=== PATIENT | female | born 1950 | race African-American/Black ===

== ENCOUNTER 2023-06-05 22:16 | Observation (INO) | payer MEDICARE ==
[2023-06-06] MEDS ORDERED: Ondansetron ODT 4 MG TAB PO PRN (01:17)
[2023-06-06] MEDS ORDERED: Dextrose 5% in Water 1,000 ML IV PRN (01:17)
[2023-06-06] MEDS ORDERED: HumaLOG 300 UNITS/3 ML VIAL SC PRN ×2 (01:17)
[2023-06-06] MEDS ORDERED: Acetaminophen 325 MG TAB PO PRN (01:17)
[2023-06-06] MEDS ORDERED: Dextrose 50% Abboject 50 ML SYRINGE SLOW IVP PRN (01:17)
[2023-06-06] MEDS ORDERED: hydrALAZINE 20 MG/ML VIAL SLOW IVP PRN (01:17)
[2023-06-06] MEDS ORDERED: Glucagon 1 MG/ML KIT IM PRN (01:17)
[2023-06-06] MEDS ORDERED: Ondansetron PF 4 MG/2 ML Vial IVP PRN (01:17)
[2023-06-06] MEDS: HYDROcodone/Acetaminophen 5/325 mg Tablet PO PRN ×2 (02:46→10:40)
[2023-06-06] MEDS ORDERED: Ketorolac Tromethamine 30 MG/ML VIAL IVP SCH ×2 (04:00→18:15)
[2023-06-06] MEDS ORDERED: HYDROcodone/Acetaminophen 5/325 mg Tablet PO PRN (06:00)
[2023-06-06 06:31] LABS: #Eosinphils 0.2 thou/uL (0.0-0.7); #Monocytes 0.4 thou/uL (0.11-0.59); #Neutrophils 3.5 thou/uL (1.40-6.50); %Basophils 0.5 % (0.0-1.0); %Eosinophils 2.6 % (0.0-10.0); %Lymphocytes 28.1 % (21.0-51.0); %Neutrophils 61.6 % (42.0-75.0); Hematocrit 37.4 % (36.0-47.0); Hemoglobin 12.1 g/dL (12.0-16.0); Mean Corpuscular HGB CONC 32.4 g/dL (32.0-36.0); Mean Corpuscular Hemoglobin 29.8 pg (27.0-31.0); Mean Corpuscular Volume 92.1 fl (78.0-98.0); Mean Platelet Volume 10.3 fL (7.4-10.4); Platelet Count 334 10x3/uL (130-400); RBC Distribution Width 16.4 % (11.5-14.5); Red Blood Cell (RBC) Count 4.06 mill/uL (4.20-5.40); White Blood Cell (WBC) Count 5.7 10x3/uL (4.8-10.8)
[2023-06-06 06:41] LABS: Hemoglobin A1c 7.3 % (4.0-6.0)
[2023-06-06 06:58] LABS: Anion Gap 11 mmol/L (10-20); BUN (Urea Nitrogen) 16 mg/dL (9.8-20.1); Calc. Creatinine Clearance 0 mL/min (70-130); Carbon Dioxide 26 mmol/L (23-31); Cardiac Risk 3.2 (Less than 4.5); Chloride 105 mmol/L (98-107); Cholesterol 185 mg/dl (< 200 Desired); Estimated GFR 83; Glucose 112 mg/dL (83-110); HDL Cholesterol 58 mg/dL (>60 Neg Risk); LDL Cholesterol, Calculated 109 mg/dL; Potassium 3.4 mmol/L (3.5-5.1); Sodium 139 mmol/L (136-145); Triglycerides 90 mg/dL (Less than 150)
[2023-06-06] MEDS ORDERED: Morphine 2 MG/ML VIAL SLOW IVP SCH ×2 (07:00→16:00)
[2023-06-06] MEDS ORDERED: FLU VACC QS2023(65UP)/MF59C/PF 60 MCG/0.5 ML SYRINGE IM ONE (09:00)
[2023-06-06] MEDS: Aspirin 81 mg Enteric Coated Tablet PO SCH (09:17)
[2023-06-06] MEDS ORDERED: Morphine 2 MG/ML VIAL SLOW IVP PRN (18:13)
[2023-06-06] MEDS ORDERED: Multivit, Therapeutic 1 TAB PO SCH (21:00)
[2023-06-06] MEDS ORDERED: Folic Acid 1 MG TAB PO SCH (21:00)
[2023-06-06] MEDS ORDERED: Atorvastatin Calcium 40 MG TAB PO SCH ×2 (21:00)
[2023-06-06] MEDS ORDERED: Cyanocobalamin (Vitamin B-12) 1,000 MCG TAB PO SCH (21:00)
[2023-06-06] MEDS ORDERED: tiZANidine HCl 4 MG TAB PO SCH (23:59)
[2023-06-07] MEDS: Morphine 2 MG/ML VIAL SLOW IVP PRN ×3 (00:13→12:25)
[2023-06-07 04:50] LABS: #Eosinphils 0.2 thou/uL (0.0-0.7); #Monocytes 0.4 thou/uL (0.11-0.59); #Neutrophils 3.4 thou/uL (1.40-6.50); %Basophils 0.6 % (0.0-1.0); %Eosinophils 4.2 % (0.0-10.0); Hematocrit 36.9 % (36.0-47.0); Mean Corpuscular HGB CONC 32.5 g/dL (32.0-36.0); Mean Corpuscular Hemoglobin 29.9 pg (27.0-31.0); Mean Corpuscular Volume 91.8 fl (78.0-98.0); Mean Platelet Volume 9.9 fL (7.4-10.4); Platelet Count 278 10x3/uL (130-400); RBC Distribution Width 16.2 % (11.5-14.5); Red Blood Cell (RBC) Count 4.02 mill/uL (4.20-5.40); White Blood Cell (WBC) Count 5.3 10x3/uL (4.8-10.8)
[2023-06-07 05:19] LABS: Anion Gap 13 mmol/L (10-20); BUN (Urea Nitrogen) 21 mg/dL (9.8-20.1); Calc. Creatinine Clearance 0 mL/min (70-130); Calcium 9.7 mg/dL (7.8-10.44); Carbon Dioxide 26 mmol/L (23-31); Chloride 104 mmol/L (98-107); Estimated GFR 83; Glucose 118 mg/dL (83-110); Potassium 3.9 mmol/L (3.5-5.1); Sodium 139 mmol/L (136-145)
[2023-06-07] MEDS ORDERED: Lorazepam 2 MG/ML VIAL SLOW IVP SCH (09:00)
[2023-06-07] MEDS ORDERED: Lorazepam 0.5 MG TAB PO PRN (09:47)
[2023-06-07] MEDS ORDERED: cloNIDine 0.1 MG TAB PO PRN (09:51)
[2023-06-07] MEDS ORDERED: Citalopram 20 MG TAB PO SCH (10:00)
[2023-06-07] MEDS ORDERED: Amlodipine 10 MG TAB PO SCH (10:00)
[2023-06-07] MEDS: Aspirin 81 mg Enteric Coated Tablet PO SCH (10:32)
[2023-06-07] MEDS ORDERED: Iopamidol 370 76% 100 ML VIAL ONE (11:09)
[2023-06-07 11:57] VITALS: BMI 31.8
[2023-06-07] MEDS: HYDROcodone/Acetaminophen 5/325 mg Tablet PO PRN (14:30)
[2023-06-07] MEDS ORDERED: Gabapentin 300 MG CAP PO SCH (15:00)
[2023-06-07 15:26] VITALS: BP 167/74; TEMP 98.3
[2023-06-07] MEDS ORDERED: Mometasone 200 MCG/Formoterol 5 MCG 120 PUFF INHALER INH SCH (18:30)
[2023-06-07] MEDS ORDERED: Non-Formulary Item 1 EACH (Budesonide-Formoterol [Symbicort 160-4.5] 160 MG/4.5 MG Aer) INH SCH (21:00)
[2023-06-08] MEDS ORDERED: Amlodipine 10 MG TAB PO SCH (09:00)
[2023-06-08] MEDS ORDERED: Citalopram 20 MG TAB PO SCH (09:00)
== END 2023-06-07 18:24 | disposition home or self-care (01) ==
LOC: 2SW 06-06 01:01
PROVIDERS: ADMIT Internal Medicine; ATTEND Internal Medicine
DX: R42 Dizziness and giddiness (principal); E11.9 Type 2 diabetes mellitus without complications; I10 Essential (primary) hypertension; J45.909 Unspecified asthma, uncomplicated; E78.5 Hyperlipidemia, unspecified; Z88.8 Allergy status to other drugs, medicaments and biological substances; Z96.653 Presence of artificial knee joint, bilateral; Z79.899 Other long term (current) drug therapy; Z79.4 Long term (current) use of insulin
CPT/HCPCS: 70551; 72148; 75635; 80048 ×2; 80061; 82550; 82962 ×2; 83036; 84443; 85025 ×2; 93880; 96374; 96375 ×2; 96376 ×2; G0378 ×2; 36415; 36416; J1885; J2060; J2272; J2405; Q9967